=== PATIENT | female | born 2005 | race Caucasian/White ===

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

== ENCOUNTER 2023-06-08 00:04 | Emergency (ER) | payer OTHER ==
[~2023-06-08] VITALS: Ht 167.6 cm; Wt 181.4 kg
[2023-06-08] MEDS ORDERED: CYCL10 PO (00:39)
[2023-06-08] MEDS ORDERED: Cyclobenzaprine HCl 10 MG Tab PO ONE (00:40)
[2023-06-08] MEDS ORDERED: Ibuprofen 600 MG Tab PO ONE (00:40)
[2023-06-08 00:47] VITALS: BP 138/85
[2023-06-09] MEDS ORDERED: Robaxin750 MG PO (03:35)
[2023-06-09] MEDS ORDERED: METPRE4DP PO (03:35)
[2023-06-09] MEDS ORDERED: IBUP600 PO (03:35)
== END 2023-06-08 00:49 | disposition home or self-care (01) ==
LOC: ER 00:04
DX: M54.50 Low back pain, unspecified (principal)
CPT/HCPCS: 99282; A9270

== ENCOUNTER 2023-06-08 21:38 | Emergency (ER) | payer OTHER ==
[~2023-06-08] VITALS: Ht 167.6 cm; Wt 181.4 kg
[~2023-06-08 21:38] MED LIST changes: +CYCL10 PO
[2023-06-09 01:40] VITALS: BP 124/68
[2023-06-09] MEDS ORDERED: Acetaminophen 500 MG Tab PO ONE (03:30)
[2023-06-09] MEDS ORDERED: IBUP600 PO (03:35)
[2023-06-09] MEDS ORDERED: Methocarbamol 500 MG Tab PO ONE (03:35)
[2023-06-09] MEDS ORDERED: dexAMETHasone 4 MG TAB PO ONE (03:35)
[2023-06-09] MEDS ORDERED: Robaxin750 MG PO (03:35)
[2023-06-09] MEDS ORDERED: METPRE4DP PO (03:35)
[2023-06-09] MEDS ORDERED: Ibuprofen 600 MG Tab PO ONE (03:35)
== END 2023-06-09 03:46 | disposition home or self-care (01) ==
LOC: ER 21:38
DX: M54.50 Low back pain, unspecified (principal)
CPT/HCPCS: 99283; A9270

== ENCOUNTER 2023-06-11 13:29 | Emergency (ER) | payer OTHER ==
[~2023-06-11] VITALS: Ht 167.6 cm; Wt 181.4 kg
[~2023-06-11 13:29] MED LIST changes: +IBUP600 PO; +METPRE4DP PO; +Robaxin750 MG PO
[2023-06-11 13:36] VITALS: BP 146/105
[2023-06-11] MEDS ORDERED: MORPHINE SULFAT15 M1 PO (16:08)
[2023-06-11] MEDS ORDERED: Morphine Sulfate 20 MG/1ML 1 ML Oral Syringe PO ONE (16:10)
== END 2023-06-11 16:27 | disposition home or self-care (01) ==
LOC: ER 13:29
DX: M54.50 Low back pain, unspecified (principal); Z79.899 Other long term (current) drug therapy; Z87.891 Personal history of nicotine dependence
CPT/HCPCS: 72128; 72131; 99283-25; A9270

== ENCOUNTER → 2024-07-02 | Outpatient (CLI) | payer OTHER ==
[~2024-07-02] MED LIST changes: +MORPHINE SULFAT15 M1 PO
== END ==
LOC: LAB 16:39 → LAB SHORT 16:39
DX: J02.9 Acute pharyngitis, unspecified (principal)
CPT/HCPCS: 87081